=== PATIENT | female | born 1930 | race African-American/Black ===

== ENCOUNTER 2016-06-30 21:00 | Emergency (ER) | payer OTHER ==
[~2016-06-30] VITALS: Ht 167.6 cm; Wt 55.0 kg
[2016-06-30 21:11] VITALS: BP 201/84; PULSE 82; RESP 16; TEMP 98.1; O2SAT 100
[2016-06-30] MEDS ORDERED: SODIUM CHLOR 0.9% 1000 ML INJ 1,000 ML IV SCH (22:23)
[2016-06-30] MEDS ORDERED: BAYE325T PO (22:27)
[2016-06-30] MEDS ORDERED: MEMA1TAB2 PO (22:27)
[2016-06-30] MEDS ORDERED: AMLO5TAB2 PO (22:27)
[2016-06-30] MEDS ORDERED: [UNRECOGNIZED DRUG - OTHER] PO (22:27)
[2016-06-30] MEDS ORDERED: TURMCAP PO (22:27)
[2016-06-30] MEDS ORDERED: RIVA4.5C PO (22:27)
[2016-06-30] MEDS ORDERED: ONDANSETRON HCL 4 MG/2 ML VIAL IVP ONE (22:30)
--- NOTE | 2016-06-30 22:31 | PD ---
HPI Chief Complaint: GI Complaint Time Seen by Provider: 22:26 Travel History International Travel<30 days: No Contact w/Intl Traveler<30days: No Traveled to known affect area: No History of Present Illness HPI 86-year-old female that presents to the ED for evaluation of nausea and vomiting and abdominal pain. Most of the history is obtained from daughter who provides most of the information as patient has a history of dementia and is not really a good historian. Her only complaint is nausea and vomiting. Daughter and patient is not sure if she ever had surgeries on her abdomen or she still has her gallbladder or appendix. Per daughter patient lived in [place] and now she is taking care of her. Patient has been taking her medications as prescribed by her doctor given by her daughter. The she does not take any blood thinners. Per daughter she's been going to the bathroom multiple times today. No new foods that she can think of. Nobody else is sick in the house. No fevers chills or sweats. Daughter is not sure patient has been having bowel movements but is having urine. The vomitus is Brown but no blood. Patient denies any abdominal discomfort but when I touch her abdomen she complains of pain especially in the epigastric area. She denies any chest pain or shortness of breath. Again history is limited secondary to the patient mental status. She cannot really give me a number of her pain. PFSH Past Medical History Cerebrovascular Accident: Yes Dementia: Yes Social History Alcohol Use: No Tobacco Use: No Substance Use: No Allergies-Medications (Allergen,Severity, Reaction): Coded Allergies: UNOBTAINABLE (Unverified , 06/30/16) Review of Systems ROS Limitations: Poor Historian General / Constitutional: No: Fever, Chills, Weight Gain, Weight Loss, Other Eyes: No: Diploplia, Blurred Vision, Photophobia, Drainage, Redness, Foreign Body Sensation, Pain, Tearing, Blind Spots, Visual changes, Blindness, Other HENT: No: Headaches, Vertigo, Lightheadedness, Sore Throat, Rhinitis, Rhinorrhea, Congestion, Nosebleed, Neck Stiffness, Neck Pain, Masses, Gingival Bleeding, Dental Difficulties, Ear Discharge, Earache, Other Cardiovascular: No: Chest Pain or Discomfort, Palpitations, Irregular Rhythm, Tachycardia, Diaphoresis, Syncope, Dyspnea on exertion, Varicosities, Edema, Cyanosis, Varicosities, Phlebitis, Claudication, Other Respiratory: No: Cough, Shortness of Breath, Wheezing, Sneezing, Orthopnea, Hemoptysis, Stridor, Night Sweats, Pleuritic Pain, Other Gastrointestinal: Positive: Nausea, Vomiting, Abdominal Pain, No: Diarrhea, Hematemesis, Hematochezia, Constipation, Changes in Bowel Habits, Indigestion, Dysphagia, Loss of Appetite, Other Genitourinary: No: Urgency, Frequency, Dysuria, Nocturia, Hematuria, Decreased Urinary Output, Oliguria, Hesitancy, Dribbling, Incontinence, Pelvic Pain, Flank Pain, Dyspareunia, Discharge, Dysmenorrhea, Menorrhagia, Metorrhagia, Vaginal Bleeding, Other Musculoskeletal: No: Myalgias, Arthralgias, Limited ROM, Weakness, Cramping, Edema, Pain, Atrophy, Other Skin: No Rash, No Itching, No Dryness, No Lumps, No Hives, No Change in Pigmentation, No Change in nails, No Alopecia, No Lesions, No Breast Lumps, No Breast Tenderness, No Breast Swelling, No Other Neurologic: No: Weakness, Dizziness, Syncope, Focal Abnormalities, Coordination Problem, Tremor, Ataxia, Headache, Change in Mentation, Slurred Speech, Paresthesia, Incontinence, Seizures, Sensory Disturbance, Other Psychiatric: No: Anxiety, Depression, Suicidal Ideations, Disorder of Thought, Mood Disorder, Substance Abuse, Homicidal Ideation, Other Endocrine: No: Heat Intolerance, Cold Intolerance, Polyuria, Polydipsia, Other Hematologic/Lymphatic: No: Easy Bruising, Lymph Node Enlargement, Other Physical Exam Narrative GENERAL: SKIN: Warm and dry. HEAD: Atraumatic. Normocephalic. EYES: Pupils equal and round. No scleral icterus. No injection or drainage. ENT: No nasal bleeding or discharge. Mucous membranes pink and moist. Tongue is midline. No Uvula deviation. NECK: Trachea midline. No JVD. CARDIOVASCULAR: Regular rate and rhythm. No murmurs, S3, S4. RESPIRATORY: No accessory muscle use. Clear to auscultation. Breath sounds equal bilaterally. GASTROINTESTINAL: Abdomen soft, patient has tenderness to palpation especially with deep palpation in the epigastric and umbilical area. Nondistended. Hepatic and splenic margins not palpable. MUSCULOSKELETAL: Extremities without clubbing, cyanosis, or edema. No obvious deformities. Full range of motion of the upper and lower extremities bilaterally. 2+ pulses bilaterally. NEUROLOGICAL: Awake and alert. No obvious cranial nerve deficits. Motor grossly within normal limits. Five out of 5 muscle strength in the arms and legs. Normal speech. PSYCHIATRIC: Appropriate mood and affect; insight and judgment normal. Data Data Last Documented VS Vital Signs Date Time Temp Pulse Resp B/P Pulse Ox O2 Delivery O2 Flow Rate FiO2 06/30/16 21:11 98.1 82 16 201/84 100 Room Air Orders Complete Blood Count With Diff (06/30/16 22:23) Comprehensive Metabolic Panel (06/30/16 22:23) Lipase (06/30/16 22:23) Prothrombin Time / Inr (Pt) (06/30/16 22:23) Act Partial Throm Time (Ptt) (06/30/16 22:23) Urinalysis - C+S If Indicated (06/30/16 22:23) Iv Access Insert/Monitor (06/30/16 22:23) Ondansetron Inj (Zofran Inj) (06/30/16 22:30) Sodium Chlor 0.9% 1000 Ml Inj (Ns 1000 M (06/30/16 22:23) Electrocardiogram (06/30/16 22:23) Ct Abd/Pel W Iv Contrast(Rout) (06/30/16 ) MDM Medical Decision Making Medical Screen Exam Complete: Yes Emergency Medical Condition: Yes Medical Record Reviewed: Yes Differential Diagnosis Abdominal pain versus obstruction versus gastroenteritis versus gastritis versus cholecystitis versus pancreatitis versus nausea and vomiting Narrative Course 86-year-old female that presents to the ED for evaluation of nausea and vomiting and abdominal pain. Patient was properly examined and was found to have signs and symptoms consistent with appears to be abdominal pain with nausea and vomiting. Labs and imaging ordered. IV was started. Patient was given antiemetics and fluids. Case will be signed out to my attending pending lab report and imaging. Lee Lemus Jun 30, 2016 22:31
[2016-06-30 22:48] LABS: AUTOMATED NEUTROPHIL # 10.5 TH/MM3 (1.8-7.7); BASOPHIL % 0.4 % (0.0-2.0); HEMO FLAGS DIFF FINAL; LYMPH % 5.3 % (9.0-44.0); LYMPHOCYTE # 0.6 TH/MM3 (1.0-4.8); MEAN CELL VOLUME 89.8 FL (80.0-100.0); MEAN CORPUSCULAR HEMOGLOBIN 29.8 PG (27.0-34.0); MEAN CORPUSCULAR HGB CONC 33.2 % (32.0-36.0); MONO % 2.8 % (0.0-8.0); NEUT % 91.5 % (16.0-70.0); PLATELET COUNT 274 TH/MM3 (150-450); RED BLOOD COUNT 4.34 MIL/MM3 (4.00-5.30); RED CELL DISTRIBUTION WIDTH 14.9 % (11.6-17.2); WHITE BLOOD COUNT 11.5 TH/MM3 (4.0-11.0)
--- NOTE | 2016-06-30 22:49 | PD ---
Physical Exam Date Seen by Provider: Jun 30, 2016 Time Seen by Provider: 22:47 Narrative The patient is a 86-year-old female who was initially evaluated by the mid- level provider, Lee Lemus PA-C, please refer to the initial history, physical, diagnostic evaluation, treatment modality plan. The patient was signed out 11 PM with laboratory evaluation and CT of the abdomen and pelvis pending. Data Data Last Documented VS Vital Signs Date Time Temp Pulse Resp B/P Pulse Ox O2 Delivery O2 Flow Rate FiO2 07/01/16 01:50 75 18 143/78 100 Room Air 06/30/16 21:11 98.1 Orders Complete Blood Count With Diff (06/30/16 22:23) Comprehensive Metabolic Panel (06/30/16 22:23) Lipase (06/30/16 22:23) Prothrombin Time / Inr (Pt) (06/30/16 22:23) Act Partial Throm Time (Ptt) (06/30/16 22:23) Urinalysis - C+S If Indicated (06/30/16 22:23) Iv Access Insert/Monitor (06/30/16 22:23) Ondansetron Inj (Zofran Inj) (06/30/16 22:30) Sodium Chlor 0.9% 1000 Ml Inj (Ns 1000 M (06/30/16 22:23) Electrocardiogram (06/30/16 22:23) Troponin I (06/30/16 22:51) Creatine Kinase (Cpk) (06/30/16 22:51) Morphine Inj (Morphine Inj) (06/30/16 23:00) Ct Abd/Pel W Iv Contrast(Rout) (07/01/16 ) Iohexol 350 Inj (Omnipaque 350 Inj) (07/01/16 01:21) Labs Laboratory Tests Test 06/30/16 07/01/16 22:33 01:14 White Blood Count 11.5 TH/MM3 Red Blood Count 4.34 MIL/MM3 Hemoglobin 12.9 GM/DL Hematocrit 39.0 % Mean Corpuscular Volume 89.8 FL Mean Corpuscular Hemoglobin 29.8 PG Mean Corpuscular Hemoglobin 33.2 % Concent Red Cell Distribution Width 14.9 % Platelet Count 274 TH/MM3 Mean Platelet Volume 7.8 FL Neutrophils (%) (Auto) 91.5 % Lymphocytes (%) (Auto) 5.3 % Monocytes (%) (Auto) 2.8 % Eosinophils (%) (Auto) 0.0 % Basophils (%) (Auto) 0.4 % Neutrophils # (Auto) 10.5 TH/MM3 Lymphocytes # (Auto) 0.6 TH/MM3 Monocytes # (Auto) 0.3 TH/MM3 Eosinophils # (Auto) 0.0 TH/MM3 Basophils # (Auto) 0.0 TH/MM3 CBC Comment DIFF FINAL Differential Comment Prothrombin Time 10.9 SEC Prothromb Time International 1.0 RATIO Ratio Activated Partial 21.9 SEC Thromboplast Time Sodium Level 139 MEQ/L Potassium Level 4.0 MEQ/L Chloride Level 101 MEQ/L Carbon Dioxide Level 26.8 MEQ/L Anion Gap 11 MEQ/L Blood Urea Nitrogen 20 MG/DL Creatinine 0.93 MG/DL Estimat Glomerular Filtration 69 ML/MIN Rate Random Glucose 156 MG/DL Calcium Level 9.6 MG/DL Total Bilirubin 0.3 MG/DL Aspartate Amino Transf 17 U/L (AST/SGOT) Alanine Aminotransferase 28 U/L (ALT/SGPT) Alkaline Phosphatase 87 U/L Total Creatine Kinase 95 U/L Troponin I LESS THAN 0.02 NG/ML Total Protein 9.0 GM/DL Albumin 4.0 GM/DL Lipase 166 U/L Urine Color YELLOW Urine Turbidity CLEAR Urine pH 6.5 Urine Specific [place] 1.020 Urine Protein TRACE mg/dL Urine Glucose (UA) NEG mg/dL Urine Ketones 10 mg/dL Urine Occult Blood NEG Urine Nitrite NEG Urine Bilirubin NEG Urine Urobilinogen LESS THAN 2.0 MG/DL Urine Leukocyte Esterase TRACE Urine RBC 13 /hpf Urine WBC 1 /hpf Urine Squamous Epithelial <1 /hpf Cells Urine Mucus FEW /lpf Microscopic Urinalysis Comment CULT NOT INDICATED MDM Medical Record Reviewed: Yes Supervised Visit with MIHAELA: Yes Interpretation(s) Last Impressions Abdomen/Pelvis CT 07/01/16 0000 Signed Impressions: Service Date/Time: Friday, July 01, 2016 01:18 - CONCLUSION: 1. Hepatic and renal cysts. 2. Fibroid uterus and abnormal appearance of the endometrium. 3. Extensive colonic diverticulosis. 4. No inflammatory changes are seen. Cristo Stout MD Laboratory Tests Test 06/30/16 07/01/16 22:33 01:14 White Blood Count 11.5 TH/MM3 Red Blood Count 4.34 MIL/MM3 Hemoglobin 12.9 GM/DL Hematocrit 39.0 % Mean Corpuscular Volume 89.8 FL Mean Corpuscular Hemoglobin 29.8 PG Mean Corpuscular Hemoglobin 33.2 % Concent Red Cell Distribution Width 14.9 % Platelet Count 274 TH/MM3 Mean Platelet Volume 7.8 FL Neutrophils (%) (Auto) 91.5 % Lymphocytes (%) (Auto) 5.3 % Monocytes (%) (Auto) 2.8 % Eosinophils (%) (Auto) 0.0 % Basophils (%) (Auto) 0.4 % Neutrophils # (Auto) 10.5 TH/MM3 Lymphocytes # (Auto) 0.6 TH/MM3 Monocytes # (Auto) 0.3 TH/MM3 Eosinophils # (Auto) 0.0 TH/MM3 Basophils # (Auto) 0.0 TH/MM3 CBC Comment DIFF FINAL Differential Comment Prothrombin Time 10.9 SEC Prothromb Time International 1.0 RATIO Ratio Activated Partial 21.9 SEC Thromboplast Time Sodium Level 139 MEQ/L Potassium Level 4.0 MEQ/L Chloride Level 101 MEQ/L Carbon Dioxide Level 26.8 MEQ/L Anion Gap 11 MEQ/L Blood Urea Nitrogen 20 MG/DL Creatinine 0.93 MG/DL Estimat Glomerular Filtration 69 ML/MIN Rate Random Glucose 156 MG/DL Calcium Level 9.6 MG/DL Total Bilirubin 0.3 MG/DL Aspartate Amino Transf 17 U/L (AST/SGOT) Alanine Aminotransferase 28 U/L (ALT/SGPT) Alkaline Phosphatase 87 U/L Total Creatine Kinase 95 U/L Troponin I LESS THAN 0.02 NG/ML Total Protein 9.0 GM/DL Albumin 4.0 GM/DL Lipase 166 U/L Urine Color YELLOW Urine Turbidity CLEAR Urine pH 6.5 Urine Specific [place] 1.020 Urine Protein TRACE mg/dL Urine Glucose (UA) NEG mg/dL Urine Ketones 10 mg/dL Urine Occult Blood NEG Urine Nitrite NEG Urine Bilirubin NEG Urine Urobilinogen LESS THAN 2.0 MG/DL Urine Leukocyte Esterase TRACE Urine RBC 13 /hpf Urine WBC 1 /hpf Urine Squamous Epithelial <1 /hpf Cells Urine Mucus FEW /lpf Microscopic Urinalysis Comment CULT NOT INDICATED Differential Diagnosis Differential diagnosis includes gastritis, gastroenteritis, pancreatitis, biliary colic, cholecystitis, dehydration, inferior myocardial infarction, colitis, ileus, partial small bowel obstruction. Narrative Course I, Dr. Harding, have reviewed the advance practice practitioner's documentation and am in agreement, met with the patient face to face, made the diagnosis, and the medical decision making was done by me. *My assessment and Findings: 86-year-old female who is initially evaluated by the mid-level provider. Please refer to the initial history, physical, diagnostic evaluation, treatment modality plan. The patient was signed out 11 PM laboratory evaluation and CT of the abdomen and pelvis pending. Laboratory evaluation is unremarkable. CT the abdomen and pelvis reveals questionable abnormal endometrium. The family just got the patient from [place], do not know a significant amount of her past medical history. I advised him to have an outpatient ultrasound with a physician. UA reveals blood but no evidence of infection. The patient's nausea/vomiting resolved. Patient was able to tolerate oral intake without difficulty. The patient be discharged home with Zofran and a copy of her CT results and lab results for outpatient follow-up and outpatient ultrasound. Patient's family agree and understand disposition. Diagnosis Primary Impression: Nausea & vomiting Qualified Code: R11.2 - Non-intractable vomiting with nausea, unspecified vomiting type Additional Impression: Abdominal pain Qualified Code: R10.13 - Epigastric pain Patient Instructions: General Instructions Additional Instruction: Medications as directed. Follow-up with a primary physician on an outpatient basis for ultrasound to follow-up abnormal endometrium on CT. Please provide the patient's family and patient a copy of the CT results and lab results. Return if symptoms worsen or progress. Med/Other Pt SpecificInfo: Prescription(s) given Scripts Ondansetron Odt (Zofran Odt)4 Mg Tab4 Mg SL Q6HR PRN (Nausea/Vomiting) #7 TAB Ref 0 Prov:Ran Harding MD 07/01/16 Disposition: DISCHARGE HOME Condition: Stable Ran Harding MD Jun 30, 2016 22:49
[2016-06-30 22:58] LABS: APTT (PATIENT) 21.9 SEC (24.3-30.1); PROTHROMBIN TIME - PATIENT 10.9 SEC (9.8-11.6)
[2016-06-30] MEDS ORDERED: MORPHINE SULFATE 4 MG/ML INJ IV PUSH ONE (23:00)
[2016-06-30 23:20] LABS: ANION GAP 11 MEQ/L (5-15); AST (GOT) 17 U/L (15-37); BICARBONATE 26.8 MEQ/L (21.0-32.0); BLOOD UREA NITROGEN 20 MG/DL (7-18); CHLORIDE 101 MEQ/L (98-107); GLOMERULAR FILTRATION RATE 69 ML/MIN (>89); SODIUM (NA) 139 MEQ/L (136-145)
[2016-06-30 23:23] LABS: ALKALINE PHOSPHATASE 87 U/L (45-117); ALT (GPT) 28 U/L (10-53); TOTAL BILIRUBIN ADULT 0.3 MG/DL (0.2-1.0)
[2016-06-30 23:25] LABS: CREATINE KINASE 95 U/L (26-192)
[2016-07-01] MEDS ORDERED: IOHEXOL 350 MG/ML 10 ML VIAL (for RAD DIAG) IV ONE (01:21)
--- NOTE | 2016-07-01 01:49 | RADRPT ---
EXAM DATE/TIME: 07/01/2016 01:18 [facility] COMPARISON: No previous studies available for comparison. INDICATIONS : Abdomen pain with vomiting. IV CONTRAST: 100 cc Omnipaque 350 (iohexol) IV ORAL CONTRAST: No oral contrast ingested. RADIATION DOSE: 5.93 CTDIvol (mGy) MEDICAL HISTORY : Dementia. Cerebrovascular disease. SURGICAL HISTORY : None. ENCOUNTER: Initial ACUITY: 1 day PAIN SCALE: Non-responsive LOCATION: abdomen TECHNIQUE: Volumetric scanning of the abdomen and pelvis was performed. Using automated exposure control and ad justment of the mA and/or kV according to patient size, radiation dose was kept as low as reasonably achievable to obtain optimal diagnostic quality images. FINDINGS: There are bilateral renal cysts noted the largest at the left lower pole measuring 5.7 x 5.2 cm in si ze. A cyst is noted in the lateral segment left lobe of the liver measuring 1.6 cm. Gallbladder, sple en, pancreas, unremarkable. Bilateral adrenal nodules are noted including a 1.4 x 1.9 cm left adrenal nodule and a 1.5 cm right adrenal nodule, incompletely characterized on this study. Urinary bladder unremarkable. The uterus is lobulated in appearance and the endometrium is prominent. A fibroid uteru s is suspected and the possibility of endometrial thickening in this postmenopausal patient should be excluded. There is extensive diverticulosis of the sigmoid and descending colon without evidence of diverticulitis. No evidence of bowel obstruction. Transverse and descending colonic diverticuli are n oted. Appendix normal. No adenopathy or aneurysm. Atherosclerotic calcifications of the aorta are see n. There is scarring at the right midpole kidney laterally with parenchymal thinning noted. There are degenerative changes of the spine and bilateral hips. Lung bases are clear. CONCLUSION: 1. Hepatic and renal cysts. 2. Fibroid uterus and abnormal appearance of the endometrium. 3. Extensive colonic diverticulosis. 4. No inflammatory changes are seen. Cristo Stout MD on July 01, 2016 at 1:44 Board Certified Radiologist. This report was verified electronically.
[2016-07-01 01:50] VITALS: BP 143/78; PULSE 75; RESP 18; O2SAT 100
[2016-07-01 02:14] LABS: BLOOD, URINE NEG (NEG); COMMENT (UR) CULT NOT INDICATED; CULTURE IF INDICATED CULT NOT INDICATED; GLUCOSE,URINE NEG (NEG); KETONE, URINE 10 mg/dL (NEG); MUCUS URINE FEW /lpf (OCC); NITRITE,URINE NEG (NEG); PH, URINE 6.5 (5.0-8.5); SQUAMOUS EPITHELIAL CELL URINE <1 /hpf (0-5); URINE COLOR YELLOW (YELLW/STRAW)
[2016-07-01] MEDS ORDERED: ZOFR4TAB3 SL (02:40)
[2016-07-01 02:49] VITALS: BP 140/75
--- NOTE | 2016-07-01 14:41 | EKG ---
Date Performed: 06/30/2016 Time Performed: 22:47:41 PTAGE: 86 years EKG: Sinus rhythm SEPTAL MYOCARDIAL INFARCTION ABNORMAL ECG NO PREVIOUS TRACING DOCTOR: Glenn Floyd Interpretating Date/Time 07/01/2016 14:39:47
== END 2016-07-01 02:50 | disposition home or self-care (01) ==
LOC: NEPE 21:00
DX: R11.2 Nausea with vomiting, unspecified (principal); R10.13 Epigastric pain; R94.31 Abnormal electrocardiogram [ECG] [EKG]; F03.90 Unspecified dementia, unspecified severity, without behavioral disturbance, psychotic disturbance, mood disturbance, and anxiety; Z86.73 Personal history of transient ischemic attack (TIA), and cerebral infarction without residual deficits
CPT/HCPCS: 74177; 80053; 81001; 82550; 83690; 84484; 85025; 85610; 85730; 93005; 96361; 96374; 96375; 99284; J2270; J2405; J7030; Q9967